=== PATIENT | female | born 1990 | race Caucasian/White ===

== ENCOUNTER 2023-11-03 13:59 | Emergency (ER) | payer OTHER ==
--- OUTSIDE RECORDS SUMMARY | 2023-11-03 14:01 | XMS REPORT | Clinical Summary ---
Author Name Unknown Organization [facility] Address [address] [place] [address] Care Team Providers Care Ic Engineer Name Role Phone Crystal Ackerman MD Primary Care Provider [phone] Social History Tobacco Use Types Packs/Day Years Used Date Smoking Tobacco: Never Assessed Sex and Gender Information Value Date Recorded Sex Assigned at Not on file Gender Identity Not on file Sexual Orientation Not on file Plan of Treatment Health Maintenance Due Date Last Done Comments COVID-19 Vaccine (#1) 1990 Influenza Vaccine 03/02/2024 Care Teams Ic Engineer Relationship Specialty Start Date End Date Crystal Ackerman MD [address] [place] [address] PCP - General Hematology and Oncology 12/07/19
--- NOTE | 2023-11-03 14:58 | RAD REPORT ---
EXAM DESCRIPTION: RAD - Foot Right 3 View - 11/03/2023 2:48 pm CLINICAL HISTORY: PAIN COMPARISON: No comparisons FINDINGS/IMPRESSION: No acute fracture. No malalignment. Small dorsal aspect calcaneal spur.
--- NOTE | 2023-11-03 14:58 | RAD REPORT ---
EXAM DESCRIPTION: RAD - Ankle Right 3 View - 11/03/2023 2:48 pm CLINICAL HISTORY: PAIN COMPARISON: No comparisons FINDINGS/IMPRESSION: No acute fracture. No malalignment. No significant focal degenerative changes.
--- NOTE | 2023-11-03 14:59 | RAD REPORT ---
EXAM DESCRIPTION: RAD - Elbow Left 3 View - 11/03/2023 2:50 pm CLINICAL HISTORY: PAIN COMPARISON: No comparisons FINDINGS/IMPRESSION: No acute fracture. No malalignment. No significant focal degenerative changes. Probable bone island in the proximal ulna. This has a nonaggressive sclerotic appearance.
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
--- NOTE | 2023-11-03 14:59 | RAD REPORT ---
EXAM DESCRIPTION: RAD - Shoulder Left 2 View - 11/03/2023 2:48 pm CLINICAL HISTORY: PAIN COMPARISON: No comparisons FINDINGS/IMPRESSION: No acute fracture. No malalignment. No significant focal degenerative changes.
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
[2023-11-03 15:47] VITALS: BP 122/79; TEMP 98.1; O2SAT 100
== END 2023-11-03 15:23 | disposition home or self-care (01) ==
LOC: ER 13:59
DX: S40.012A Contusion of left shoulder, initial encounter (principal); S80.02XA Contusion of left knee, initial encounter; S80.01XA Contusion of right knee, initial encounter; S90.01XA Contusion of right ankle, initial encounter
CPT/HCPCS: 99283

== ENCOUNTER 2023-11-12 13:05 | Emergency (ER) | payer OTHER ==
--- OUTSIDE RECORDS SUMMARY | 2023-11-12 13:07 | XMS REPORT | Clinical Summary ---
Author Name Unknown Organization [facility] [place] Address [address] [place] [address] Care Team Providers Care Deck Engineer Name Role Phone Crystal Ackerman MD Primary Care Provider [phone] Social History Tobacco Use Types Packs/Day Years Used Date Smoking Tobacco: Never Assessed Sex and Gender Information Value Date Recorded Sex Assigned at Not on file Gender Identity Not on file Sexual Orientation Not on file Plan of Treatment Health Maintenance Due Date Last Done Comments COVID-19 Vaccine (#1) 1990 Influenza Vaccine 03/02/2024 Care Teams Deck Engineer Relationship Specialty Start Date End Date Crystal Ackerman MD [address] [place] [address] PCP - General Hematology and Oncology 12/07/19
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
[2023-11-12 14:40] VITALS: BP 118/78; TEMP 98; O2SAT 99
== END 2023-11-12 14:10 | disposition home or self-care (01) ==
LOC: ER 13:05
DX: T79.2XXA Traumatic secondary and recurrent hemorrhage and seroma, initial encounter (principal)
CPT/HCPCS: 99283